=== PATIENT | female | born 1980 | race Caucasian/White ===

== ENCOUNTER 2020-05-22 18:49 | Emergency (ER) | payer OTHER ==
[~2020-05-22] VITALS: Ht 170.2 cm; Wt 76.2 kg
[2020-05-22 19:21] VITALS: Ht 170.2 cm; Wt 76.2 kg
[2020-05-22 23:39] VITALS: BP 123/74
== END 2020-05-22 23:39 | disposition home or self-care (01) ==
LOC: ED 18:49
DX: K59.00 Constipation, unspecified (principal)